=== PATIENT | female | born 2000 | race American Indian/Alaskan Native ===

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

== ENCOUNTER 2021-03-29 12:04 | Emergency (ER) | payer MEDICAID ==
[~2021-03-29] VITALS: Ht 157.5 cm; Wt 57.6 kg
[2021-03-29 12:35] VITALS: BP 125/60
--- NOTE | 2021-03-29 13:15 | NUR ---
Patient seen and assessed by provider.
== END 2021-03-29 13:18 | disposition home or self-care (01) ==
LOC: ER 12:05
DX: S00.06XA Insect bite (nonvenomous) of scalp, initial encounter (principal); W57.XXXA Bitten or stung by nonvenomous insect and other nonvenomous arthropods, initial encounter; Y93.89 Activity, other specified; Y92.89 Other specified places as the place of occurrence of the external cause; Y99.8 Other external cause status
CPT/HCPCS: 99281